=== PATIENT | male | born 2000 | race Two or more races ===

== ENCOUNTER 2019-05-17 22:40 | Emergency (ER) | payer OTHER ==
[~2019-05-17] VITALS: Ht 175.3 cm; Wt 91.2 kg
[2019-05-18 01:15] VITALS: BP 104/57
== END 2019-05-18 01:18 | disposition home or self-care (01) ==
LOC: ED 23:59
DX: S06.9X1A Unspecified intracranial injury with loss of consciousness of 30 minutes or less, initial encounter (principal); S00.91XA Abrasion of unspecified part of head, initial encounter; R55 Syncope and collapse; R42 Dizziness and giddiness; W18.30XA Fall on same level, unspecified, initial encounter; Y93.89 Activity, other specified; Y92.59 Other trade areas as the place of occurrence of the external cause; Y99.8 Other external cause status
CPT/HCPCS: 70450; 93005; 99284